=== PATIENT | female | born 1960 ===

== ENCOUNTER 2023-05-28 11:09 | Outpatient (AMB) | payer OTHER, SELFPAY ==
--- NOTE | 2023-05-28 11:27 | HO.SPINEOV ---
Intake Intake Visit Reasons: spinal stenosis Intake Note: Ms. 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: No Allergies No Known Allergies Allergy (Verified 05/28/23 11:28) Assessment & Plan Assessment & Plan (1) Lumbar spinal stenosis due to adjacent segment disease after fusion procedure: Code(s): M48.061 - Spinal stenosis, lumbar region without neurogenic claudication; M51.36 - Other intervertebral disc degeneration, lumbar region (2) Scoliosis of lumbar region due to degenerative disease of spine in adult: Code(s): M41.56 - Other secondary scoliosis, lumbar region Plan Dear colleague Thank you for referring Rachel Perera to the office today with a chief complaint of right-sided back pain radiating to her right groin and thigh. HPI: This 63-year-old female is status post L3-L5 lumbar fusion in the 80s from which she recovered well. She was very active including running until approximately 4 years ago where she started to develop pain on the right side radiating to her groin. The pain has progressed over the years to a continuous pain that wakes her up at night. It is a burning sensation. She can not walk or stand for prolonged period of times. Yoga or hanging on a bar briefly alleviates his symptoms. Sometimes she has to lay down to get some relief. The left side is unaffected. She saw Dr. GIBSON, told her she was not a surgical candidate and offered her an injection. The injection was not successful. Dr. Gibson advised her to see me for further evaluation. The following conservative treatment options were tried without success antiinflammatories, tylenol, physician guided home exercise plan, cortisone shots PMH: Left knee surgeries and lumbar fusions Medications: Celebrex twice a day Allergies: NKDA Social history: Single. Nonsmoker. 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 On inspection there is a upper lumbar scoliotic curvature. Well-healed incisions. Sensory motor exam are intact. No pathological reflexes. In order an outward rotation of the hip is uneventful. SI joint tests are negative. Radiological Studies: MRI done at [facility] show status post L3-L5 lumbar fusion but more importantly there is an adjacent degenerative disc disease and associated scoliosis and lateral listhesis causing moderate L1-L2 and L 2 L3 central stenosis and severe right L2 foraminal stenosis. An x-ray confirmed the MRI findings. Impression/Plan: This 63-year-old female suffering from a right lumbar radiculopathy associated with the scoliotic deformity above the previous fusion causing spinal stenosis and nerve root compression. The treatment would be to minimally invasive correct the scoliosis of the upper lumbar spine through an oblique lateral lumbar interbody fusion. I will also have to remove the previous instrumentation to allow me to add new instrumentation from T11-L3. I described the procedure and expected postoperative course. We have not set a surgical date as I want her to return to my office again with old images for comparison and give her time to think about today's conversation. Thank you for allowing me to participate in your patients care. total time spent was 50 minutes in counseling ,coordination of plan, personal review of imaging, surgical decision making and subsequent plan Alvin Longo MD, PhD Spine Fellowship Trained Neurosurgeon Director, [facility] Coding Level of Care Code New Pt Level 4 (20798) Diagnoses Lumbar spinal stenosis due to adjacent segment disease after fusion procedure M48.061; M51.36 Scoliosis of lumbar region due to degenerative disease of spine in adult M41.56
== END 2023-05-28 12:27 | disposition home or self-care (01) ==
PROVIDERS: PCP Family Medicine Sports Medicine; Visit Provider Neurological Surgery
DX: M48.061 Spinal stenosis, lumbar region without neurogenic claudication (principal); M51.36 Other intervertebral disc degeneration, lumbar region; M41.56 Other secondary scoliosis, lumbar region
CPT/HCPCS: 99204

== ENCOUNTER → 2023-05-28 11:09 | Outpatient (BNVA) | payer OTHER, SELFPAY | PROVIDERS: PCP Family Medicine Sports Medicine; Visit Provider Neurological Surgery ==

== ENCOUNTER 2023-07-02 14:35 | Outpatient (AMB) | payer OTHER, SELFPAY ==
--- NOTE | 2023-07-02 15:05 | A.SPINEOV_ITS ---
Intake Visit Reasons: Xray & CT follow up Intake Note: Ms. Dimas is here today to F/u on xray and CT Allergies No Known Allergies Allergy (Verified 07/02/23 15:06) Assessment & Plan Assessment & Plan (1) Scoliosis of lumbar region due to degenerative disease of spine in adult: Code(s): M41.56 - Other secondary scoliosis, lumbar region Category: Medical Plan Dear colleague, On July 02, 2023, I saw for an office visit Rachel Dimas to further discuss possibility of correcting her adjacent lumbar degenerative scoliosis. As you know this patient underwent an L3-L5 lumbar fusion many years ago at [place] with good success. Over the last few years she developed a severe pain that radiates into her groin and thigh in addition to upper lumbar back pain. Imaging reviews an adjacent degenerative scoliosis at L2-3 and L1-L2 and lateral listhesis of L2-L3 with severe neuroforaminal stenosis explaining her nerve pain. I offered her a minimally invasive correction through an oblique lateral lumbar interbody fusion T12-L1, L1-L2 and L2-L3 followed by T11-L3 posterior instrumentation after removal of her old L3-L5 posterior instrumentation. We went over the procedure again. I also showed her the her bone quality is suboptimal. She has not on any medication for osteopenia/osteoporosis. We discussed expected postoperative course. A surgical date is set for 11/25/2023. In the meantime, the patient is going to get preoperative clearance from her primary care physician. She will also start anterior osteoporotic medication in conjunction with the primary care physician in attempt to improve her bone quality preoperatively. She will obtain information from her previous surgery in regard to the type of instrumentation used in that case. It is my suspicion that she has [employer]er[employer] implants. Finally, a brace will be ordered preoperatively that she can bring in the day of the surgery for postoperative stabilization. We will have a final visit in the beginning of October to make sure that all the boxes are checked before the reconstructive spinal surgery. I spent 50 minutes in his consult discussing procedure, answer question and discussing plan of care. Alvin Longo MD, PhD Spine Fellowship Trained Neurosurgeon Director, [facility] [place] [facility] Coding Level of Care Code Est Pt Level 5 (68182) Diagnoses Scoliosis of lumbar region due to degenerative disease of spine in adult M41.56
== END 2023-07-02 15:57 | disposition home or self-care (01) ==
PROVIDERS: PCP Family Medicine Sports Medicine; Visit Provider Neurological Surgery
DX: M41.56 Other secondary scoliosis, lumbar region (principal)
CPT/HCPCS: 99215

== ENCOUNTER → 2023-07-02 14:35 | Outpatient (BNVA) | payer OTHER, SELFPAY | PROVIDERS: PCP Family Medicine Sports Medicine; Visit Provider Neurological Surgery ==